=== PATIENT | male | born 1970 | race Caucasian/White ===

== ENCOUNTER → 2023-12-21 | Day surgery (SDC) | payer BC ==
[~2023-12-21] VITALS: Ht 198.1 cm; Wt 138.0 kg
[~2023-12-21] MED LIST: GLUCOPHAGE500 MG/TAB PO; GLUCOTROL 5M5 MG/TAB; GLUCOTROL 5M5 MG/TAB PO; LANTUS SOLOS100 U/ML SQ; LOTREL 10 MG-401 CAP PO; NS 1,000 ML IV SCH; TOPROL XL 25MG25 MG PO; VICTOZA6 MG/ML SQ; XALATAN EYE DROPS OU; ZOCOR 20MG20 MG PO
[2023-12-21 15:37] VITALS: BP 153/88; PULSE 87; TEMP 98.7
--- NOTE | 2023-12-21 15:39 | NUR ---
1314 Patient ambulatory to bay [facility] with a steady gait, breathing even and unlabored. Patient's right foot is in an orthopedic boot. Patient declined a wheel chair ride. Patient is alert and oriented. Accompanied by his . Consents reviewed and signed by patient. IV established. NS infusing via gravity at KVO. Call light in reach. Warm blanket provided.
--- NOTE | 2023-12-21 16:04 | NUR ---
1545 Patient and his asked for an update on when pt. would go to surgery. I contaced OR nurse who estimated it could be over and hour. I updated patient and his and patient stated he wanted to reschedule. manager hospice and Dr. Fierro were updated. Patient will call Dr. Fierro's office to reschedule. 1600 IV removed. 1605 Patient and his departed unit.
== END ==
LOC: SDCO 13:00
DX: S92.422B Displaced fracture of distal phalanx of left great toe, initial encounter for open fracture (principal); E66.9 Obesity, unspecified; F17.220 Nicotine dependence, chewing tobacco, uncomplicated; E11.42 Type 2 diabetes mellitus with diabetic polyneuropathy; Z79.4 Long term (current) use of insulin; Z79.84 Long term (current) use of oral hypoglycemic drugs; X58.XXXA Exposure to other specified factors, initial encounter; Y93.9 Activity, unspecified; Z53.20 Procedure and treatment not carried out because of patient's decision for unspecified reasons
CPT/HCPCS: J7030